=== PATIENT | male | born 1995 | race Caucasian/White ===

== ENCOUNTER 2018-06-21 21:08 | Emergency (ER) | payer OTHER ==
[~2018-06-21] VITALS: Ht 188 cm; Wt 79.4 kg
[~2018-06-21 21:08] MED LIST: KEFLEX500 MG PO; NORCO 5-325 TA1 EACH PO; PERCOCET 5-3251 EACH PO
[2018-06-21 21:55] LABS: ABSOLUTE LYMPHOCYTES 0.6 thou/uL (0.8-5.3); ABSOLUTE MONOCYTES 0.7 thou/uL (0.0-1.2); ABSOLUTE NEUTROPHILS 3.2 thou/uL (1.6-8.1); BASOPHILS 1.1 %; EOSINOPHILS 0.6 %; HEMATOCRIT 43.2 % (42.0-52.0); HEMOGLOBIN 14.7 gm/dL (14.0-18.0); LYMPHOCYTES 13.8 %; MCH 29.8 pg (26.0-34.0); MCHC 33.9 g/dL (28.0-37.0); MONOCYTES 14.9 %; MPV 7.5 fl. (7.2-11.1); NUCLEATED RBCS 0 /100WBC; PLATELET COUNT* 285 thou/uL (150-400); POLYS 69.6 %; RBC 4.91 mil/uL (4.50-6.00); RDW-CV 13.1 % (10.5-14.5); WBC 4.6 thou/uL (4.0-11.0)
[2018-06-21 21:58] LABS: INFLUENZA A ANTIGEN None Detected (None Detect); INFLUENZA B ANTIGEN None Detected (None Detect)
[2018-06-21 21:58] LABS: CREATININE 1.3 mg/dL (0.6-1.3); POTASSIUM 4.1 mmol/L (3.5-5.1)
[2018-06-21] MEDS ORDERED: MEDROLDOSEPACK PO (22:16)
[2018-06-21] MEDS ORDERED: TESSALON PERLE100 MG PO (22:16)
== END 2018-06-21 22:00 | disposition home or self-care (01) ==
LOC: M.ERS 21:08
PROVIDERS: Nurse Practitioner Family
DX: J20.9 Acute bronchitis, unspecified (principal); F17.200 Nicotine dependence, unspecified, uncomplicated

== ENCOUNTER 2021-03-13 21:34 | Emergency (ER) | payer OTHER ==
[~2021-03-13] VITALS: Ht 172.7 cm; Wt 77.1 kg
--- NOTE | ~2021-03-13 | EMS ---
[facility] [address] [place] [address] EMS Patient Care Report Name: JOY RODRIGUEZ [id number] Admission: 03/13/21 Attend Phys: Discharge: 03/14/21 Date of : [birth year] Report #: [id number] THIS REPORT FOR: //name// Report Transmitted: 03/14/2021 05:19 EMS Care Summary [facility] Sasha MEZA Incident [id number] @ 03/13/2021 20:41 Incident Location [address] [id number] Patient Joy Rodriguez Male, 25 Years 1995 Patient Address [address] [place] [address] Patient History Unspecified asthma,Attention Deficit Hyperactivity Disorder (ADHD), Patient Allergies No known allergies, Patient Medications ProAir, Chief Complaint Alcohol related symptoms Disposition Transported No Lights/Drig[place] Dispatch Reason Overdose/Poisoning/Ingestion Transported To [facility] Narrative [facility] dispatched to the above address for ETOH. Arrived on scene of a single-family home. Upon entering, [employer] is at patient side. Patient is found laying on the floor. Per mom, patient drank a significant amount of alcohol in a one hour span after finding out his girlfriend cheated on him again. It [facility] [address] [place] [address] EMS Patient Care Report Name: JOY RODRIGUEZ Room: [facility]#: [id number] Admission: 03/13/21 Attend Phys: Discharge: 03/14/21 Date of : [birth year] Report #: [id number] appears that he drank whiskey, rum, and vodka straight. Patient does have a ETOH history. Upon arrival to the patient, he is alert to voice. He is maintaining is own airway and intact circulation. No concern for trauma, patient was lowered to the ground by family. Mom requests patient be transported [facility]. IFD placed [employer] under patient. He was carried out to [facility] and placed in a supine position. Patient was secured via all safety straps plus side rails. Patient taken to ambulance, loaded and secured without inident. Vitals, 4-lad, 12-lead, IV access with BGL obtained. Patient was asked multiple questions but does not answer and states I'm tired". There was some mention of possible SI via dispatch. Patient was asked if he had suicidal or homicidal thoughts, which he denies. Fluid administered due to the significant intoxication. Patient is unsure of any drug use when asked. Capnography placed for monitoring. There was report of possible chest pain and shortness of breath, which patient denies. During transport, patient remained monitored with supportive care provided. At destination, mask placed on patient. He was unloaded and taken to [facility] at the front end engineer. Patient was transferred from cot to facility bed via drawsheet and help from staff. Report to physician and RN. Patient had no additional belongings. Care transferred and call cleared. Initial Vitals @PTASpO2: 99, @21:05SpO2: 100, @21:07SpO2: 100, @21:19SpO2: 97, @21:19SpO2: 97, @21:24SpO2: 95, @21:29SpO2: 96, @21:31SpO2: 96, @21:34SpO2: 98, @21:08 @PTAP: 114,BP: 143/92, @21:05P: 84,R: 14,BP: 155/106, @21:09P: 88,R: 15,BP: 158/107, @21:19P: 88,R: 15,BP: 151/96, @21:31P: 84,R: 19,BP: 137/84, @21:33FtQB5: 23, @21:23FhIB5: 28, @21:59KfYN1: 27, @21:68PyHO7: 29, @21:52LvHG6: 29, @21:83TuOA1: 33, @21:27QuDA2: 32, @21:67HuRN4: 32, @NUCLEAR CARDIOLOGY TECHNOLOGIST @21:05GCS: [address], [place] [address] EMS Patient Care Report Name: RENETTA RODRIGUEZSCAR Armendariz [facility] [id number] Admission: 03/13/21 Attend Phys: Discharge: 03/14/21 Date of : [birth year] Report #: [id number] @21:09GCS: 13, @21:19GCS: 13, @21:31GCS: 13, @20:59 Assessments @20:59MENTAL:SKIN:HEENT:LUNG SOUNDS:ABDOMEN:PELVIS//GI:EXTREMITIES:PULSE:NEURO: Impression Alcohol use Procedures @21:12 IV Therapy - cc () Site: Antecubital-Right Response: UnchangedFailed @21:15 IV Therapy - cc () Site: Hand-Right Response: UnchangedSucceeded @21:12 ETCO2 digital capnography Response: UnchangedSucceeded @21:14 ETCO2 digital capnography Response: UnchangedSucceeded @21:15 ETCO2 digital capnography Response: UnchangedSucceeded @21:19 ETCO2 digital capnography Response: UnchangedSucceeded @21:19 ETCO2 digital capnography Response: UnchangedSucceeded @21:24 ETCO2 digital capnography Response: UnchangedSucceeded @21:29 ETCO2 digital capnography Response: UnchangedSucceeded @21:31 ETCO2 digital capnography Response: UnchangedSucceeded @21:08 12-Lead ECG Response: UnchangedSucceeded Timeline NUCLEAR CARDIOLOGY TECHNOLOGIST,BP: / M,PULSE: ,RR: R,SPO2: 99 Ox,ETCO2: ,BG: ,PAIN: ,GCS: , NUCLEAR CARDIOLOGY TECHNOLOGIST,BP: 143/92 M,PULSE: 114,RR: R,SPO2: Ox,ETCO2: ,BG: ,PAIN: ,GCS: , NUCLEAR CARDIOLOGY TECHNOLOGIST,BP: / M,PULSE: ,RR: R,SPO2: Ox,ETCO2: ,BG: ,PAIN: ,GCS: , 20:00,Call Received 20:41,Dispatch Notified 20:41,Psap Call 20:41,Dispatched 20:42,En Route 20:58,On Scene 20:59,At Patient 20:59,BP: / M,PULSE: ,RR: R,SPO2: Ox,ETCO2: ,BG: ,PAIN: ,GCS: , 21:05,BP: / M,PULSE: ,RR: R,SPO2: 100 Ox,ETCO2: ,BG: ,PAIN: ,GCS: , 21:05,BP: 155/106 M,PULSE: 84,RR: 14 R,SPO2: Ox,ETCO2: ,BG: ,PAIN: ,GCS: , 21:05,BP: / M,PULSE: ,RR: R,SPO2: Ox,ETCO2: ,BG: ,PAIN: ,GCS: 13, 21:07,BP: / M,PULSE: ,RR: R,SPO2: 100 Ox,ETCO2: ,BG: ,PAIN: ,GCS: , 21:08,12-Lead ECG,Response: UnchangedSucceeded, 21:08,BP: / M,PULSE: ,RR: R,SPO2: Ox,ETCO2: ,BG: ,PAIN: ,GCS: , 21:09,BP: 158/107 M,PULSE: 88,RR: 15 R,SPO2: Ox,ETCO2: ,BG: ,PAIN: ,GCS: , 21:09,BP: / M,PULSE: ,RR: R,SPO2: Ox,ETCO2: ,BG: ,PAIN: ,GCS: 13, [place] [address] EMS Patient Care Report Name: JOY RODRIGUEZ [facility] [id number] Admission: 03/13/21 Attend Phys: Discharge: 03/14/21 Date of : [birth year] Report #: [id number] 21:12,IV Therapy - cc Site: Antecubital-Right,Response: UnchangedFailed, 21:12,ETCO2 digital capnography,Response: UnchangedSucceeded, 21:12,BP: / M,PULSE: ,RR: R,SPO2: Ox,ETCO2: 23 ,BG: ,PAIN: ,GCS: , 21:14,ETCO2 digital capnography,Response: UnchangedSucceeded, 21:14,BP: / M,PULSE: ,RR: R,SPO2: Ox,ETCO2: 28 ,BG: ,PAIN: ,GCS: , 21:15,IV Therapy - cc Site: Hand-Right,Response: UnchangedSucceeded, 21:15,ETCO2 digital capnography,Response: UnchangedSucceeded, 21:15,BP: / M,PULSE: ,RR: R,SPO2: Ox,ETCO2: 27 ,BG: ,PAIN: ,GCS: , 21:19,ETCO2 digital capnography,Response: UnchangedSucceeded, 21:19,ETCO2 digital capnography,Response: UnchangedSucceeded, 21:19,BP: / M,PULSE: ,RR: R,SPO2: 97 Ox,ETCO2: ,BG: ,PAIN: ,GCS: , 21:19,BP: / M,PULSE: ,RR: R,SPO2: 97 Ox,ETCO2: ,BG: ,PAIN: ,GCS: , 21:19,BP: 151/96 M,PULSE: 88,RR: 15 R,SPO2: Ox,ETCO2: ,BG: ,PAIN: ,GCS: , 21:19,BP: / M,PULSE: ,RR: R,SPO2: Ox,ETCO2: 29 ,BG: ,PAIN: ,GCS: , 21:19,BP: / M,PULSE: ,RR: R,SPO2: Ox,ETCO2: 29 ,BG: ,PAIN: ,GCS: , 21:19,BP: / M,PULSE: ,RR: R,SPO2: Ox,ETCO2: ,BG: ,PAIN: ,GCS: 13, 21:19,Depart Scene 21:24,ETCO2 digital capnography,Response: UnchangedSucceeded, 21:24,BP: / M,PULSE: ,RR: R,SPO2: 95 Ox,ETCO2: ,BG: ,PAIN: ,GCS: , 21:24,BP: / M,PULSE: ,RR: R,SPO2: Ox,ETCO2: 33 ,BG: ,PAIN: ,GCS: , 21:29,ETCO2 digital capnography,Response: UnchangedSucceeded, 21:29,BP: / M,PULSE: ,RR: R,SPO2: 96 Ox,ETCO2: ,BG: ,PAIN: ,GCS: , 21:29,BP: / M,PULSE: ,RR: R,SPO2: Ox,ETCO2: 32 ,BG: ,PAIN: ,GCS: , 21:30,At Destination 21:31,ETCO2 digital capnography,Response: UnchangedSucceeded, 21:31,BP: / M,PULSE: ,RR: R,SPO2: 96 Ox,ETCO2: ,BG: ,PAIN: ,GCS: , 21:31,BP: 137/84 M,PULSE: 84,RR: 19 R,SPO2: Ox,ETCO2: ,BG: ,PAIN: ,GCS: , 21:31,BP: / M,PULSE: ,RR: R,SPO2: Ox,ETCO2: 32 ,BG: ,PAIN: ,GCS: , 21:31,BP: / M,PULSE: ,RR: R,SPO2: Ox,ETCO2: ,BG: ,PAIN: ,GCS: 13, 21:34,BP: / M,PULSE: ,RR: R,SPO2: 98 Ox,ETCO2: ,BG: ,PAIN: ,GCS: , 21:50,Call Closed Disclaimer v1.1 Copyright 2020 [employer] This EMS Care Summary contains data elements from the applicable legal record (which may be displayed differently). It is designed to provide pertinent information for the following purposes: continuity of care, clinical quality, and state data reporting. The complete legal record is available to ED staff and administrators of the receiving hospital in [employer] Patient Tracker. All data is provided "as is."
[~2021-03-13 21:34] MED LIST changes: +MEDROLDOSEPACK PO; +TESSALON PERLE100 MG PO
[2021-03-13 22:03] LABS: ABSOLUTE BASOPHILS 0.1 thou/uL (0.0-0.2); ABSOLUTE LYMPHOCYTES 1.2 thou/uL (0.8-5.3); ABSOLUTE MONOCYTES 0.6 thou/uL (0.0-1.2); ABSOLUTE NEUTROPHILS 7.9 thou/uL (1.6-8.1); BASOPHILS 0.8 %; EOSINOPHILS 0.4 %; HEMATOCRIT 45.3 % (42.0-52.0); HEMOGLOBIN 15.1 gm/dL (14.0-18.0); LYMPHOCYTES 12.3 %; MCH 30.4 pg (26.0-34.0); MCHC 33.2 g/dL (28.0-37.0); MCV 91.3 fL (80.0-100.0); MONOCYTES 5.9 %; NUCLEATED RBCS 0 /100WBC; PLATELET COUNT* 400 thou/uL (150-400); POLYS 80.6 %; RBC 4.96 mil/uL (4.50-6.00); RDW-CV 13.6 % (10.5-14.5); WBC 9.9 thou/uL (4.0-11.0)
[2021-03-13 22:09] LABS: CREATININE 0.9 mg/dL (0.6-1.3); POTASSIUM 3.6 mmol/L (3.5-5.1)
[2021-03-13 22:13] LABS: ALBUMIN 3.8 g/dL (3.4-5.0); TOTAL BILIRUBIN 0.3 mg/dL (<0.1-1.0); TOTAL PROTEIN 7.7 g/dL (6.4-8.2)
[2021-03-14 00:50] LABS: AMP/METHAMP Negative (Negative); BARBITURATES Negative (Negative); BENZODIAZEPINES Negative (Negative); COCAINE Negative (Negative); METHADONE Negative (Negative); OPIATES Negative (Negative); PCP Negative (Negative); THC Negative (Negative)
[2021-03-14 01:25] VITALS: BP 129/69
--- NOTE | 2021-03-14 09:02 | EKG ---
[place] [address] ELECTROCARDIOGRAM REPORT Name: JOY MAGAÑA Room: [facility]#: [id number] Admission: 03/13/21 Attend Phys: Discharge: 03/14/21 Date of : [birth year] Date of Service: 03/13/212141 Report #: [id number] THIS REPORT FOR: //name// [facility] ED Test Date: 2021-03-13 Test Time: 21:42:56 Pat Name: JOY MAGAÑA Department: Room: Gender: Cabbage Salter: : 1995 Requested By: Carola Alonso Order Number: [id number] MD: Kervin Corcoran Measurements Intervals [place] Rate: 80 P: 38 HI: 165 QRS: 25 QRSD: 113 T: 9 QT: 395 QTc: 456 Interpretive Statements Sinus rhythm Probable left atrial enlargement Borderline intraventricular conduction delay Borderline T wave abnormalities No previous ECG available for comparison Electronically Signed On 03-14-2021 9:02:16 [employer]IPYARD PAINTING SUPERVISOR by Kervin Corcoran [email or web address] <ELECTRONICALLY SIGNED> By: Kervin Corcoran MD, [facility] 03/14/2102 41 41 Kervin Corcoran MD, [facility] /EPI
== END 2021-03-14 01:26 | disposition home or self-care (01) ==
LOC: M.ERS 21:34
PROVIDERS: Emergency Medicine
DX: F10.129 Alcohol abuse with intoxication, unspecified (principal); Y90.9 Presence of alcohol in blood, level not specified